=== PATIENT | male | born 1990 | race Caucasian/White ===

== ENCOUNTER 2018-05-18 11:39 | Emergency (ER) | payer SELFPAY | END 2018-05-18 12:50 | disposition home or self-care (01) | LOC: FTE 11:39 | DX: L72.9 Follicular cyst of the skin and subcutaneous tissue, unspecified (principal); L08.9 Local infection of the skin and subcutaneous tissue, unspecified | CPT/HCPCS: 99283 ==

== ENCOUNTER 2018-05-19 23:32 | Emergency (ER) | payer SELFPAY | END 2018-05-20 02:11 | disposition home or self-care (01) | LOC: FTE 23:32 | DX: Z48.01 Encounter for change or removal of surgical wound dressing (principal) | CPT/HCPCS: 99283 ==